=== PATIENT | male | born 1990 | race Caucasian/White ===

== ENCOUNTER 2017-07-19 17:44 | Emergency (ER) | payer BC, OTHER ==
[~2017-07-19] VITALS: Ht 182.9 cm; Wt 97.8 kg
[2017-07-19 17:47] VITALS: TEMP 36.8; Ht 182.9 cm; Wt 97.8 kg
--- NOTE | 2017-07-19 18:10 | EMERGENCY ROOM VISIT NOTE ---
ED Visit Note First contact with patient: 17:50 CHIEF COMPLAINT: Foot pain HISTORY OF PRESENT ILLNESS: This 27-year-old male patient presents to the emergency department ambulatory complaining of swelling and pain in the left foot at rest and worse with weight bearing. The patient fell while playing soccer today and injured the left foot. The patient rates the pain as sharp and 6/10. The patient has no relief of the pain. The patient is able to walk. No numbness or weakness. No ankle pain. There are no lacerations of the foot. The patient is apical to move all of their toes and their ankle without pain. Patient denies previous injury to this foot. REVIEW OF SYSTEMS: GENERAL: A 6 system review of systems was completed with positives and pertinent negatives in the HPI. ALLERGIES: No known drug allergies MEDICATIONS: None PMH: None SOCIAL HISTORY: The patient lives locally PHYSICAL EXAM: Vital Signs: Reviewed Nurse's notes, vital signs stable. GENERAL : This is a 27-year-old male, in no acute distress, but appears in pain, well- developed, well-nourished. MUSCULOSKELETAL: There is no visual deformity of the left foot. There is no erythema but mild ecchymosis. There is no warmth. There is tenderness and swelling over the fifth metatarsal of the left foot. The range of motion of the foot is not significantly limited secondary to pain. There is no tenderness over the plantar fascia. Dorsi flexion 5/5 and Plantar flexion 5/5. The skin is intact and there are no lacerations or puncture wounds. Dorsalis pedis pulse 2+. Capillary refill less than 2 seconds. EMERGENCY DEPARTMENT COURSE: I examined the patient. An X-ray of the left foot was reviewed by myself and radiology and reveals fifth metatarsal fracture. The patient was placed in a posterior short leg orthoglas splint by the audiovisual lead technician and the position was satisfactory. Neurovascular status was intact. The patient was instructed on the use of crutches. He was given a take home pack of [place]. The patient was discharged home in good condition. LEFT FOOT MIN 3 VIEWS ROUTINE HISTORY: 27 years-old Male left foot injury acute left foot pain status post soccer injury. COMPARISON: None available. TECHNIQUE: 3 views of the left foot. FINDINGS: There is acute nondisplaced transverse fracture involving the fifth metatarsal at the proximal metadiaphyseal junction, 2.7 cm distal to the proximal tuberosity. Moderate associated soft tissue swelling. No additional acute fracture or dislocation. No significant degenerative changes. IMPRESSION: Acute nondisplaced transverse fracture involves the fifth metatarsal at the proximal metadiaphyseal junction. Note that fractures within this location can be associated with nonunion (Hernandez fracture). Current/Historical Medications No Active Prescriptions or Reported Meds Allergies Coded Allergies: No Known Allergies (Unverified , 07/19/17) Vital Signs Date Time Temp Pulse Resp B/P (MAP) Pulse Ox O2 Delivery O2 Flow Rate FiO2 07/19/17 17:47 36.8 99 17 145/72 100 Room Air Medications Administered Medications (Trade) Dose Ordered Sig/Lizbeth Route Start Time Stop Time Status Last Admin Dose Admin Acetaminophen/ Hydrocodone Bitart ([place] 5/325mg Home Pack) 1 homepack UD ONCE PO 07/19/17 19:15 07/19/17 19:16 DC 07/19/17 19:14 1 HOMEPACK Departure Information Impression Primary Impression: Fracture of fifth metatarsal bone Dispostion Home / Self-Care Condition GOOD Prescriptions No Active Prescriptions or Reported Meds Referrals No Doctor, Assigned (PCP) Silas Malone, DO Forms HOME CARE DOCUMENTATION FORM, IMPORTANT VISIT INFORMATION, School Instructions Additional Instructions: Patient to wear splint and use crutches. Emil may be late to class on occasion. Patient Instructions ED Fx Foot, [facility] Additional Instructions Motrin 600 mg every 6-8 hours or moderate pain [place] 1-2 tablet every 4-6 hours if needed for worse pain. Do not drink or drive while taking [place] and do not take with Tylenol. Do not get the splint wet. Wear the splint until seen by orthopedics. Use the crutches and avoid weight bearing. Contact orthopedics first thing in the morning to schedule a follow-up appointment for further evaluation and management. Return with any worsening symptoms. Problem Qualifiers Primary Impression: Fracture of fifth metatarsal bone Encounter type: initial encounter Fracture type: closed Fracture alignment : nondisplaced Laterality: left Qualified Codes: S92.355A - Nondisplaced fracture of fifth metatarsal bone, left foot, initial encounter for closed fracture
--- NOTE | 2017-07-19 18:59 | DIAGNOSTIC IMAGING REPORT ---
LEFT FOOT MIN 3 VIEWS ROUTINE HISTORY: 27 years-old Male left foot injury acute left foot pain status post soccer injury. COMPARISON: None available. TECHNIQUE: 3 views of the left foot. FINDINGS: There is acute nondisplaced transverse fracture involving the fifth metatarsal at the proximal metadiaphyseal junction, 2.7 cm distal to the proximal tuberosity. Moderate associated soft tissue swelling. No additional acute fracture or dislocation. No significant degenerative changes. IMPRESSION: Acute nondisplaced transverse fracture involves the fifth metatarsal at the proximal metadiaphyseal junction. Note that fractures within this location can be associated with nonunion (Hernandez fracture). The above report was generated using voice recognition software. It may contain grammatical, syntax or spelling errors. Electronically signed by: Michael Rodriguez M.D. 07/19/2017 6:58 PM Dictated Date/Time: 07/19/2017 6:55 PM
[2017-07-19] MEDS ORDERED: NORCO 5/325MG HOME PACK PO ONE (19:15)
[2017-07-19 20:12] VITALS: BP 127/76; PULSE 74; O2SAT 98
== END 2017-07-19 20:14 | disposition home or self-care (01) ==
LOC: C.EDB 17:47 → C.EDD 20:14
DX: S92.355A Nondisplaced fracture of fifth metatarsal bone, left foot, initial encounter for closed fracture (principal); W19.XXXA Unspecified fall, initial encounter; Y93.66 Activity, soccer